=== PATIENT | female | born 1985 | race Asian ===

== ENCOUNTER 2016-07-09 07:45 | Emergency (ER) | payer MEDICAID ==
[~2016-07-09] VITALS: Ht 167.6 cm; Wt 61.4 kg
[~2016-07-09 07:45] MED LIST: DOXYCYCLINE 10100 MG PO; FLAGYL500 MG PO; FLEXERIL 1010 MG/TAB PO; IBU800 M1 PO; MACROBID 1100 MG/CAP PO; NORCO 325 MG-51 TAB PO; PERCOCET 325 MG1 TA2 PO; PREDNISONE20 MG PO; PRENATAL1 TA3 PO; PYRIDIUM200 M1 PO
[2016-07-09] MEDS ORDERED: PRENATAL PO (07:51)
[2016-07-09 08:53] LABS: BASO % 0.3 % (0.0-2.0); EOS # 0.1 (0.0-0.7); EOS % 1.4 % (0-4.0); GRAN # 4.6 (1.4-6.5); GRAN % 53.1 % (42.2-75.2); LYMPH # 3.3 (1.2-3.4); LYMPH % 37.6 % (20.0-51.0); MEAN CELL VOLUME 90 fl (80.0-100.0); MEAN CORPUSCULAR HGB CONC 32 g/dl (33.0-37.0); MEAN PLATELET VOLUME 9.3 fl (7.4-10.4); MONO # 0.7 (0.1-0.6); MONO % 7.4 % (1.7-9.3); PLATELET COUNT 374 K/mm3 (130-400); RED BLOOD COUNT 3.88 M/mm3 (4.10-5.30); REDCELL DISTRIBUTION WIDTH-CV 14.4 % (11.5-14.5); WHITE BLOOD COUNT 8.7 K/mm3 (4.8-10.8)
[2016-07-09 08:56] LABS: ADJUSTED CALCIUM 9.3 mg/dL (8.4-10.2); ALANINE AMINOTRANSFERASE 18 U/L (9-52); ALBUMIN 4.5 gm/dL (3.5-5.0); ALKALINE PHOSPHATASE 59 U/L (50-136); ANION GAP 13 mmol/L (7-16); BILIRUBIN,TOTAL 0.5 mg/dL (0.0-1.0); BLOOD UREA NITROGEN 8 mg/dL (7-17); CALCIUM 9.7 mg/dL (8.4-10.2); CARBON DIOXIDE 21 mmol/L (22-30); CHLORIDE 103 mmol/L (98-107); CREATININE, serum 0.49 mg/dL (0.52-1.25); GLUCOSE 89 mg/dL (74-106); POTASSIUM 3.9 mmol/L (3.4-5.0); SODIUM 137 mmol/L (137-145); TOTAL PROTEIN 7.9 gm/dL (6.4-8.2)
[2016-07-09 08:57] LABS: C-REACTIVE PROTEIN < 0.5 mg/dL (0.0-0.9)
[2016-07-09 08:58] LABS: HEMATOCRIT 34.8 % (37.0-47.0); HEMOGLOBIN 11.2 g/dl (12.5-16.0); MEAN CORPUSCULAR HEMOGLOBIN 29 pg (27.0-31.0)
[2016-07-09 09:22] LABS: PH 6 (5-8); SQUAMOUS EPITHELIAL 0-2 /hpf; URINE APPEARANCE Clear; URINE BACTERIA None Seen /hpf; URINE BILIRUBIN Negative (NEGATIVE); URINE BLOOD Negative (NEGATIVE); URINE COLOR Straw; URINE GLUCOSE Negative (NEGATIVE); URINE KETONE Negative (NEGATIVE); URINE RBC 0-2 /hpf; URINE UROBILINOGEN Negative (NEGATIVE); URINE WBC 0-2 /hpf
[2016-07-09 10:29] VITALS: BP 116/68; PULSE 86; TEMP 98.6
[2016-07-09 11:41] LABS: CHLAMYDIA/TRACH by PCR Female NOT DETECTED; NEISSERIA GON by PCR Female NOT DETECTED
== END 2016-07-09 10:42 | disposition home or self-care (01) ==
LOC: COL.ER 07:45
PROVIDERS: Emergency Medicine
DX: O99.89 Other specified diseases and conditions complicating pregnancy, childbirth and the puerperium (principal); Z3A.01 Less than 8 weeks gestation of pregnancy; R10.2 Pelvic and perineal pain
CPT/HCPCS: J2550; J7030

== ENCOUNTER 2016-07-30 16:57 | Emergency (ER) | payer MEDICAID ==
[~2016-07-30] VITALS: Ht 170.2 cm; Wt 61.4 kg
[~2016-07-30 16:57] MED LIST changes: +PRENATAL PO
[2016-07-30 17:02] VITALS: PULSE 98; TEMP 98.6
[2016-07-30 18:13] LABS: BASO % 0.3 % (0.0-2.0); EOS # 0.1 (0.0-0.7); EOS % 0.8 % (0-4.0); GRAN # 6.3 (1.4-6.5); GRAN % 61.1 % (42.2-75.2); LYMPH % 29.1 % (20.0-51.0); MEAN CELL VOLUME 90 fl (80.0-100.0); MEAN CORPUSCULAR HGB CONC 33 g/dl (33.0-37.0); MEAN PLATELET VOLUME 9.3 fl (7.4-10.4); MONO # 0.9 (0.1-0.6); MONO % 8.3 % (1.7-9.3); PLATELET COUNT 359 K/mm3 (130-400); RED BLOOD COUNT 3.74 M/mm3 (4.10-5.30); REDCELL DISTRIBUTION WIDTH-CV 14.8 % (11.5-14.5); WHITE BLOOD COUNT 10.3 K/mm3 (4.8-10.8)
[2016-07-30 18:25] LABS: ADJUSTED CALCIUM 10.1 mg/dL (8.4-10.2); ALBUMIN 4.2 gm/dL (3.5-5.0); BILIRUBIN,TOTAL 0.4 mg/dL (0.0-1.0); CALCIUM 10.3 mg/dL (8.4-10.2); CREATININE, serum 0.45 mg/dL (0.52-1.25); POTASSIUM 3.8 mmol/L (3.4-5.0); TOTAL PROTEIN 7.8 gm/dL (6.4-8.2)
[2016-07-30 18:26] LABS: HEMATOCRIT 33.5 % (37.0-47.0); HEMOGLOBIN 11.2 g/dl (12.5-16.0); MEAN CORPUSCULAR HEMOGLOBIN 30 pg (27.0-31.0)
[2016-07-30] MEDS ORDERED: PHENERGAN 25 TA25 MG PO (18:27)
[2016-07-30 19:05] VITALS: BP 118/73
== END 2016-07-30 19:11 | disposition home or self-care (01) ==
LOC: COL.ER 16:57
PROVIDERS: Emergency Medicine
DX: O99.89 Other specified diseases and conditions complicating pregnancy, childbirth and the puerperium (principal); R11.2 Nausea with vomiting, unspecified; R19.7 Diarrhea, unspecified; Z3A.10 10 weeks gestation of pregnancy
CPT/HCPCS: J2550; J7030

== ENCOUNTER → 2016-12-13 | Outpatient (CLI) | payer MEDICAID ==
[~2016-12-13] MED LIST changes: +PHENERGAN 25 TA25 MG PO
== END ==
LOC: SUN.DIA 10:47
DX: O24.419 Gestational diabetes mellitus in pregnancy, unspecified control (principal); Z3A.00 Weeks of gestation of pregnancy not specified; Z71.3 Dietary counseling and surveillance
CPT/HCPCS: G0108

== ENCOUNTER → 2017-01-04 | Outpatient (CLI) | payer MEDICAID | LOC: SUN.DIA 08:49 | DX: O24.419 Gestational diabetes mellitus in pregnancy, unspecified control (principal); Z3A.33 33 weeks gestation of pregnancy; Z71.3 Dietary counseling and surveillance | CPT/HCPCS: G0108 ==

== ENCOUNTER → 2017-01-19 | Outpatient (CLI) | payer MEDICAID | LOC: SUN.DIA 08:42 | DX: O24.419 Gestational diabetes mellitus in pregnancy, unspecified control (principal); Z3A.35 35 weeks gestation of pregnancy; Z71.3 Dietary counseling and surveillance | CPT/HCPCS: G0108 ==

== ENCOUNTER 2017-02-21 20:21 | Outpatient (CLI) | payer MEDICAID ==
[~2017-02-21] VITALS: Ht 167.6 cm; Wt 70.5 kg
[2017-02-21 20:40] VITALS: BP 129/81; PULSE 81; TEMP 98.1
[2017-02-21] MEDS ORDERED: FERROUSGLUC256MG (20:44)
[2017-02-21 21:34] VITALS: BP 135/80; PULSE 67
== END 2017-02-21 21:55 | disposition home or self-care (01) ==
LOC: LDRO 20:21
DX: O62.9 Abnormality of forces of labor, unspecified (principal); Z3A.39 39 weeks gestation of pregnancy; Z87.59 Personal history of other complications of pregnancy, childbirth and the puerperium

== ENCOUNTER 2017-02-22 23:29 | Inpatient (IN) | payer MEDICAID ==
[~2017-02-22] VITALS: Ht 167.6 cm; Wt 70.5 kg
[~2017-02-22 23:29] MED LIST changes: +FERROUSGLUC256MG
[2017-02-22 23:40] VITALS: BP 133/84; PULSE 68; TEMP 97.8
[2017-02-22 23:50] VITALS: BP 133/84; PULSE 68; TEMP 97.8
[2017-02-23] VITALS (20 sets, daily range): BP systolic 108–153; BP diastolic 58–93; PULSE 60–90; TEMP 97.4–97.8
[2017-02-23 00:38] LABS: BASO % 0.2 % (0.0-2.0); EOS # 0.1 (0.0-0.7); EOS % 0.8 % (0-4.0); GRAN # 5.4 (1.4-6.5); GRAN % 59.8 % (42.2-75.2); LYMPH # 2.8 (1.2-3.4); LYMPH % 31.4 % (20.0-51.0); MEAN CELL VOLUME 91 fl (80.0-100.0); MEAN CORPUSCULAR HGB CONC 33 g/dl (33.0-37.0); MEAN PLATELET VOLUME 10.8 fl (7.4-10.4); MONO # 0.7 (0.1-0.6); MONO % 7.6 % (1.7-9.3); PLATELET COUNT 203 K/mm3 (130-400); RED BLOOD COUNT 3.93 M/mm3 (4.10-5.30)
[2017-02-23 00:45] LABS: HEMATOCRIT 35.8 % (37.0-47.0); HEMOGLOBIN 11.9 g/dl (12.5-16.0); MEAN CORPUSCULAR HEMOGLOBIN 30 pg (27.0-31.0)
[2017-02-24 08:20] VITALS: BP 100/80; PULSE 82; TEMP 98.6
[2017-02-24] MEDS ORDERED: IBU800 M1 PO (08:32)
== END 2017-02-24 12:00 | disposition home or self-care (01) | DRG 775 ==
LOC: LDRO 23:29 → OB 02-23 00:05 → LDR 02-23 00:05 → OB 02-23 05:30
PROVIDERS: Obstetrics & Gynecology
PROC: 10E0XZZ Delivery of Products of Conception, External Approach (ICD-10-PCS; principal; 2017-02-23)
PROC: 0KQM0ZZ Repair Perineum Muscle, Open Approach (ICD-10-PCS; 2017-02-23)
DX: O24.420 Gestational diabetes mellitus in childbirth, diet controlled (principal); O69.81X0 Labor and delivery complicated by cord around neck, without compression, not applicable or unspecified; O70.1 Second degree perineal laceration during delivery; O75.89 Other specified complications of labor and delivery; Z3A.39 39 weeks gestation of pregnancy; Z37.0 Single live birth
CPT/HCPCS: J2210; J2590; J7120

== ENCOUNTER 2018-01-02 10:37 | Emergency (ER) | payer MEDICAID ==
[~2018-01-02] VITALS: Ht 167.6 cm; Wt 61.4 kg
[2018-01-02 10:42] VITALS: TEMP 98.9
[2018-01-02 11:28] LABS: COLLECTION METHOD CLEAN CATCH
[2018-01-02 11:40] LABS: MUCOUS Present /lpf; PH 5 (5-8); URINE APPEARANCE Cloudy; URINE BACTERIA Occasional /hpf; URINE BILIRUBIN Negative (NEGATIVE); URINE BLOOD 2+ (NEGATIVE); URINE COLOR Yellow; URINE GLUCOSE Negative (NEGATIVE); URINE KETONE Negative (NEGATIVE); URINE LEUKOCYTE ESTERASE 1+ (NEGATIVE); URINE NITRATE Negative (NEGATIVE); URINE PROTEIN(semi-quant) Negative (NEGATIVE); URINE UROBILINOGEN Negative (NEGATIVE)
[2018-01-02] MEDS ORDERED: CEFTIN500 MG PO (12:05)
[2018-01-02] MEDS ORDERED: FLEXERIL 1010 MG/TAB PO (12:05)
[2018-01-02 12:17] VITALS: BP 121/78; PULSE 70
== END 2018-01-02 12:17 | disposition home or self-care (01) ==
LOC: COL.ER 10:37
PROVIDERS: Emergency Medicine
DX: N39.0 Urinary tract infection, site not specified (principal); Z98.890 Other specified postprocedural states
CPT/HCPCS: J0696; J1885

== ENCOUNTER 2020-02-18 17:41 | Emergency (ER) | payer MEDICAID ==
[~2020-02-18] VITALS: Ht 167.6 cm; Wt 65.9 kg
[~2020-02-18 17:41] MED LIST changes: +CEFTIN500 MG PO
[2020-02-18 17:52] VITALS: TEMP 98.6
[2020-02-18 18:59] VITALS: BP 129/91; PULSE 88
== END 2020-02-18 19:00 | disposition home or self-care (01) ==
LOC: COL.ER 17:41
DX: U07.1 COVID-19 (principal); J06.9 Acute upper respiratory infection, unspecified

== ENCOUNTER 2021-09-21 18:47 | Emergency (ER) | payer MEDICAID ==
[~2021-09-21] VITALS: Ht 170.2 cm; Wt 68.2 kg
[2021-09-21 20:12] LABS: COLLECTION METHOD CLEAN CATCH
[2021-09-21 20:19] LABS: MUCOUS Present (NOT PRESENT); PH 8 (5-8); SQUAMOUS EPITHELIAL 0-2 /hpf (0-10); URINE APPEARANCE Clear (CLEAR/HAZY); URINE BACTERIA Rare /hpf (NONE SEEN); URINE BILIRUBIN Negative (NEGATIVE); URINE BLOOD 1+ (NEGATIVE); URINE COLOR Straw (YELLOW); URINE GLUCOSE Negative (NEGATIVE); URINE KETONE Negative (NEGATIVE); URINE LEUKOCYTE ESTERASE Negative (NEGATIVE); URINE NITRATE Negative (NEGATIVE); URINE PROTEIN(semi-quant) Negative (NEGATIVE); URINE UROBILINOGEN Negative (NEGATIVE)
[2021-09-21 20:33] VITALS: BP 136/85; PULSE 85; TEMP 98.1
== END 2021-09-21 20:33 | disposition home or self-care (01) ==
LOC: COL.ER 18:47
PROVIDERS: Physician Assistant
DX: M54.50 Low back pain, unspecified (principal); N81.89 Other female genital prolapse; Z32.02 Encounter for pregnancy test, result negative; Z28.310 Unvaccinated for COVID-19